=== PATIENT | female | born 1970 | race Caucasian/White ===

== ENCOUNTER → 2016-12-17 | Outpatient (CLI) | payer MEDICAID ==
[~2016-12-17] MED LIST: AMITRIPTYLINE10 MG PO; B-12500 MC1 PO; BACTRIM DS 8001 TA1 PO; DICLOFENAC 50MG50 MG PO; DULOXETINE30 MG PO; IBU-8800 MG PO; KEPPRA 500 MG500 MG PO; LEVETIRACETAM500 MG PO; LODINE400 M1 PO; LORTAB 5/500 501 TAB PO; MELOXICAM7.5 MG PO; NAPROXEN375 M1 PO; NOMEDS *; VOLTAREN100 GM TP
--- NOTE | 2016-12-17 13:45 | RADIOLOGY REPORT PS360 ---
EXAM: CERVICAL SPINE 4 OR 5 VIEWS HISTORY: NECK PAIN ORDERING PHYSICIAN: ISIDRO GUNTER PATIENT AGE: 46 years COMPARISON: None FINDINGS: There is normal alignment. No fracture or dislocation is evident. The disc spaces are well-preserved. There is minimal anterolisthesis of C6 on C7 of 1 to 2 mm. Mild foraminal narrowing is present on the right at C3-C4 from uncovertebral hypertrophy. Mild right foraminal narrowing at C5-C6. Mild left foraminal narrowing at C3-C4. No cervical rib. IMPRESSION: 1. Mild bilateral foraminal narrowing at C3-C4 and right foraminal narrowing at C5-C6. 2. Otherwise negative cervical spine
--- NOTE | 2016-12-17 13:48 | RADIOLOGY REPORT PS360 ---
EXAM: LUMBAR SPINE 5 VIEWS HISTORY: Low back pain with left-sided sciatica LBP WITH LT SCIATICA ORDERING PHYSICIAN: ISIDRO GUNTER PATIENT AGE: 46 years COMPARISON: 08/07/2014 FINDINGS: There is normal alignment. No fracture or dislocation is evident. Severe degenerative disc disease is present at L5-S1 with mild degenerative disc disease from L1 to L4. Facet arthritic changes with hypertrophy L4-5 and L5-S1. Mild anterolisthesis of L5 on S1 of 5 mm. Osteophytes L4-5 and L5-S1. Multiple small calcific densities are present to the left of L5 and may be due to phleboliths unchanged from the previous exam. IMPRESSION: 1. Multilevel lumbar spondylosis with severe degenerative disc disease at L5-S1 and facet arthritic changes at L4-5 and L5-S1. These findings are similar than when compared to the previous exam.
--- NOTE | 2016-12-17 13:49 | RADIOLOGY REPORT PS360 ---
[id number] VIEWS HISTORY: Right shoulder pain RT SHOULDER AND NECK PAIN, TRAUMA ORDERING PHYSICIAN: ISIDRO GUNTER PATIENT AGE: 46 years FINDINGS: There are mild osteoarthritic changes of the acromioclavicular joint. Calcification is present along the greater tuberosity consistent with calcific tendinitis. There is mild subcortical cystic change of the greater tuberosity. Mild subacromial stenosis once again noted No fracture or dislocation. No lytic or blastic change. IMPRESSION: Acromioclavicular arthropathy with calcific tendinitis. Overall no change from 09/20/2016
== END ==
LOC: RAD 11:23
DX: M54.2 Cervicalgia (principal); M54.5 Low back pain

== ENCOUNTER → 2017-01-21 | Outpatient (CLI) | payer MEDICAID ==
--- NOTE | 2017-01-22 13:28 | RADIOLOGY REPORT PS360 ---
MRI-UP EXT ANY JNT W/O-RT HISTORY: Right shoulder pain following injury with limited range of motion INJURY OF RT SHOULDER ORDERING PHYSICIAN: KARAN FREDERICK MD PATIENT AGE: 46 years COMPARISON: 12/17/2016 radiograph TECHNIQUE: Standard multiplanar multiecho sequences are performed without contrast. FINDINGS: Motion artifact somewhat obscures fine detail. There is complete tear of both the supraspinatus and infraspinatus tendons with retraction of the musculotendinous fibers. There is subacromial stenosis with mild superior migration of the humeral head. No obvious labral tear. The subscapularis and teres minor tendons appear intact. Small amount fluid is present in the subacromial region and subdeltoid area and there is hypertrophic change of the acromioclavicular joint. The bicipital tendon is in place. No obvious fracture or bone bruise. IMPRESSION: 1. Complete tears of both the supraspinatus and infraspinatus tendons with mild retraction of the musculotendinous fibers. Over 2 superior location of the humeral head with subacromial stenosis and acromioclavicular arthropathy. 3. Shoulder joint effusion with fluid in the subacromial and subdeltoid region.
== END ==
LOC: RAD 14:21
DX: S49.91XA Unspecified injury of right shoulder and upper arm, initial encounter (principal)